=== PATIENT | male | born 1990 | race Caucasian/White ===

== ENCOUNTER 2022-12-22 13:42 | Outpatient (CLI) | payer MEDICAID, SELFPAY ==
--- NOTE | ~2022-12-22 | MR_ITS ---
EXAMINATION: MR brain/brain stem wo con DATE: 12/22/2022 14:52 INDICATION: Traumatic brain injury. TECHNIQUE: Magnetic resonance imaging (MRI) of the brain and brainstem was performed without intraven ous contrast. COMPARISON: None. FINDINGS: There is chronic encephalomalacia in right temporal parietal region and posterior right fro ntal lobe with old blood products. There is no intracranial hemorrhage, acute infarction, or abnormal mass lesion. The ventricles are normal in size. There is a right mastoid effusion. There is fluid in sphenoid sinus. The orbits are normal. IMPRESSION: 1. Chronic encephalomalacia in right temporal parietal region and posterior right frontal lobe. Reviewed, dictated and finalized at location E. IMPRESSION: 1. Chronic encephalomalacia in right temporal parietal region and posterior rig ht frontal lobe.
== END 2022-12-22 13:43 | disposition home or self-care (01) ==
LOC: ANHIMG 13:44
PROVIDERS: PCP Internal Medicine; Visit Provider Internal Medicine
DX: S06.8 Other specified intracranial injuries (principal); X58.XXXD Exposure to other specified factors, subsequent encounter; G93.89 Other specified disorders of brain
CPT/HCPCS: 70551

== ENCOUNTER 2024-01-24 14:42 | Emergency (ER) | payer BC, SELFPAY ==
[2024-01-24] VITALS (16 sets, daily range): BP systolic 85–129; BP diastolic 63–96; PULSE 71–103; RESP 10–25; TEMP 36.6; O2SAT 93–100
--- NOTE | ~2024-01-24 | XR_ITS ---
EXAMINATION: XR chest 1V DATE: 01/24/2024 17:01 INDICATION: Syncope. TECHNIQUE: A single frontal view of the chest was obtained. COMPARISON: None. FINDINGS: There is elevation of right hemidiaphragm. There is mild atelectasis at right lung base. No pleural effusion or pneumothorax. The heart size is normal. IMPRESSION: 1. Elevation of right hemidiaphragm with mild atelectasis at right lung base. Reviewed, dictated and finalized at location A.
--- NOTE | ~2024-01-24 | CT_ITS ---
EXAMINATION: CT brain wo con DATE: 01/24/2024 16:55 INDICATION: Head trauma and syncope TECHNIQUE: Computed tomography (CT) of the head was performed without intravenous contrast. Sagittal and coronal reconstructions were performed. Automated exposure control and iterative reconstruction t echnique were employed. The dose-length product was 681.00 mGy-cm. COMPARISON: Brain MR dated 12/22/2022 FINDINGS: No acute fracture. Chronic fracture in the left temporal and parietal regions which are subtly eviden t on the prior MRI. Small regions of encephalomalacia in the right temporal and right temporal pariet al regions underlying the region of fracture suggests this represents sequela of old trauma. No acute intracranial hemorrhage, acute infarction or abnormal extra axial fluid collection. Ventricles are n ormal and symmetric. No mass/mass effect. Mild mucosal thickening the right maxillary and sphenoid si nuses. The orbits and mastoid air cells are normal. IMPRESSION: 1. No acute fracture or acute intracranial process. 2. Old right temporoparietal calvarial fracture with small regions of immediately underlying encephal omalacia which favors sequela of old trauma rather than infarct. Reviewed, dictated and finalized at location A. IMPRESSION: 1. No acute fracture or acute intracranial process. 2. Old right temporoparietal calvarial fracture with small regions of immediate ly underlying encephalomalacia which favors sequela of old trauma rather than i nfarct.
--- NOTE | ~2024-01-24 | CT_ITS ---
EXAMINATION: CT facial & cervical spine wo DATE: 01/24/2024 16:58 INDICATION: Head injury. TECHNIQUE: Computed tomography (CT) of the maxillofacial region and cervical spine was performed with out intravenous contrast. Automated exposure control and iterative reconstruction technique were empl oyed. The dose-length product was 536.62 mGy-cm. COMPARISON: None FINDINGS: MAXILLOFACIAL CT: There is leftward deviation of the nasal septum. No fracture. There is mild mucosal thickening in the paranasal sinuses. There are carious lesions involving multiple molars. There are periapical lucenci es of tooth 2 and tooth [address] CERVICAL SPINE [address]: There is kyphosis of cervical spine. There is 8 degrees levocurvature of cervical spine. Vertebral polina dy heights are normal. There is mildly decreased disc height at C5-C6. The following disc levels are specifically discussed: C2-C3: There is no uncovertebral joint osteoarthritis. There is mild left facet joint osteoarthritis. There is no neural foraminal stenosis. There is no central canal stenosis. C3-C4: There is mild left uncovertebral joint osteoarthritis. There is no facet joint osteoarthritis. There is mild left neural foraminal stenosis. There is no central canal stenosis. C4-C5: There is no uncovertebral joint osteoarthritis. There is mild left facet joint osteoarthritis. There is no neural foraminal stenosis. There is no central canal stenosis. C5-C6: There is no uncovertebral joint osteoarthritis. There is mild bilateral facet joint osteoarthr itis. There is no neural foraminal stenosis. There is no central canal stenosis. C6-C7: There is no uncovertebral joint osteoarthritis. There is mild bilateral facet joint osteoarthr itis. There is no neural foraminal stenosis. There is no central canal stenosis. C7-T1: There is no uncovertebral joint osteoarthritis. There is mild bilateral facet joint osteoarthr itis. There is no neural foraminal stenosis. There is no central canal stenosis. IMPRESSION: 1. No fracture. 2. Dental disease. 3. Mild cervical spondylosis. Reviewed, dictated and finalized at location A.
--- NOTE | 2024-01-24 14:48 | ECG_ITS ---
Test Date: 2024-01-24 14:50:35 Measurements Intervals [place] Rate: 97 P: 41 MT: 151 QRS: 19 QRSD: 100 T: 66 QT: 355 QTc: 452 Interpretive Statements SINUS RHYTHM POSSIBLE LEFT ATRIAL ENLARGEMENT [-0.1mV P WAVE IN V1/V2] NONSPECIFIC T-WAVE ABNORMALITY No previous ECG available for comparison Electronically Signed On 01-24-2024 14:59:33 CDT by Alfredo Palacios M.D.
[2024-01-24 15:01] LABS: Basophils Absolute Auto 0.1 K/mm3 (0.0-0.1); Basophils Percent Auto 0.6 % (0.2-1.2); Eosinophils Absolute Auto 0.1 K/mm3 (0-0.3); Eosinophils Percent Auto 0.9 % (0-4.4); Hematocrit 47.4 % (42.0-52.0); Hemoglobin 16.4 g/dL (14.0-18.0); Immature Granulocyte Absolute 0.24 K/mm3 (0.00-0.031); Immature Granulocyte Percent A 2.3 % (0-0.5); Lymphocytes Absolute Auto 4.11 K/mm3 (0.9-3.2); Mean Corpuscular HGB Conc 34.6 g/dl (32-36); Mean Corpuscular Hemoglobin 31.1 pg (26-34); Mean Corpuscular Volume 89.8 fl (80-100); Mean Platelet Volume 10.4 fl (7.4-10.4); Monocytes Absolute Auto 0.6 K/mm3 (0.1-0.6); Neutrophils Absolute Auto 5.2 K/mm3 (1.3-6.7); Neutrophils Percent Auto 50.2 % (45.5-73.1); Platelet Count Result 247 k/mm3 (150-375); Red Blood Count 5.28 M/mm3 (4.6-6.20); Red Cell Distribution Width 11.9 % (11.5-14.5); White Blood Count 10.3 K/mm3 (4.5-10.0)
[2024-01-24 15:14] LABS: Partial Thromboplastin Time 27.7 Seconds (22.3-36.8)
[2024-01-24 15:20] LABS: Alanine Aminotransferase 53 U/L (6-50); Albumin Level 4.6 g/dL (3.5-5.1); Alkaline Phosphatase 100 U/L (38-126); Anion Gap 16 mmol/L (4-12); Aspartate Amino Transferase 39 U/L (17-59); Bilirubin,Total 0.8 mg/dL (0.2-1.3); Blood Urea Nitrogen 11 mg/dL (9-20); Calcium 9.3 mg/dL (8.4-10.2); Carbon Dioxide 18 mmol/L (22-30); Chloride 100 mmol/L (98-107); Estimated CRCL calculation 130 ml/min; Estimated Glomerular Filt Rate > 60; Glucose 120 mg/dL (65-110); Potassium 3.8 mmol/L (3.4-5.0); Sodium 134 mmol/L (137-145)
[2024-01-24] MEDS: SODIUM CHLORIDE 0.9% IV 1,000 ML 999 ML IV CONT (17:12)
--- NOTE | 2024-01-24 17:25 | ED.GENADULT ---
HPI - General Adult General Chief complaint: Altered Mental Status Stated complaint: ams Time Seen by Provider: 01/24/24 16:24 History of Present Illness HPI narrative: Patient 33-year-old gentleman presents emergency department with chief complaint of altered mental status and syncopal episode. Per the patient's family the patient has prior history of a traumatic brain injury and a subdural hematoma about a year ago while he was in [place] the patient is not on any anti elliptic medications the patient's father reports that he heard a thud and found the patient wedge between a nightstand dresser the patient did have some shaking of his extremities but no bowel or bladder dysfunction. The patient reports that there is bruising present to the scalp. Patient reports no other injury. The family reports that he normally has some difficulty with answering some questions reports that he is close to his baseline now. Related Data Allergies Allergy/AdvReac Type Severity Reaction Status Date / Time No Known Allergies Allergy Mild Verified 01/24/24 14:47 Review of Systems Review of Systems: A 10 system review of systems was completed on the patient and is negative except for what is stated in the HPI. Nursing and ancillary documentation was reviewed. Exam Narrative: GENERAL: Well-appearing, well-nourished, and in no acute distress. HEAD: Normocephalic, atraumatic. EYES: PERRLA and EOMI. ENT: Nares clear, no rhinorrhea or epistaxis. Mucous membranes moist. NECK: Supple. CHEST: Clear to auscultation. No respiratory distress. HEART: Regular rate and rhythm. No murmur heard. Normal peripheral pulses. ABDOMEN: Soft, nontender, nondistended, normal active bowel sounds. EXTREMITIES: Normal range of motion. No edema. SKIN: Warm, dry, no rash. NEURO: No focal deficits. Alert and oriented x3. PSYCH: Normal mood and affect. Course Vital Signs Vital signs: Vital Signs Temperature 36.6 C 01/24/24 14:42 Pulse Rate 103 H 01/24/24 14:42 Respiratory Rate 19 01/24/24 14:42 Blood Pressure 102/67 01/24/24 14:42 Pulse Oximetry 97 01/24/24 14:42 Oxygen Delivery Room Air 01/24/24 14:42 Temperature 36.6 C 01/24/24 14:42 Pulse Rate 86 01/24/24 17:31 Respiratory Rate 25 H 01/24/24 17:31 Blood Pressure 115/68 01/24/24 17:31 Pulse Oximetry 96 01/24/24 17:31 Oxygen Delivery Room Air 01/24/24 14:42 Medical Decision Making [facility] Narrative Medical decision making narrative: Differential diagnosis improved syncopal episode, seizure, electrolyte abnormality, Laboratory studies were obtained showed normal CBC CMP showed a CO2 18 anion gap 16 glucose 120 lactic acid was [address] head facial bones and C-spine showed no acute injury the prior injury was redemonstrated no acute or chronic subdural present there was encephalomalacia from the previous injury that was unchanged from previous MRI The case was discussed with neurology will be able to follow the patient up in the office the patient be loaded with Keppra and will be started on 750 of Keppra twice daily Vital Signs Vital Signs: Vital Signs Temperature 36.6 C 01/24/24 14:42 Pulse Rate 103 H 01/24/24 14:42 Respiratory Rate 19 01/24/24 14:42 Blood Pressure 102/67 01/24/24 14:42 Pulse Oximetry 97 01/24/24 14:42 Oxygen Delivery Room Air 01/24/24 14:42 Temperature 36.6 C 01/24/24 14:42 Pulse Rate 86 01/24/24 17:31 Respiratory Rate 25 H 01/24/24 17:31 Blood Pressure 115/68 01/24/24 17:31 Pulse Oximetry 96 01/24/24 17:31 Oxygen Delivery Room Air 01/24/24 14:42 Lab Data 01/24/24 14:56 01/24/24 14:56 Labs: Lab Results 01/24/24 01/24/24 01/24/24 Range/Units 14:56 17:12 18:23 WBC 10.3 H (4.5-10.0) K/mm3 RBC 5.28 (4.6-6.20) M/mm3 Hgb 16.4 (14.0-18.0) g/dL Hct 47.4 (42.0-52.0) % MCV 89.8 (80-100) fl MCH 31.1 (26
[2024-01-24 17:33] LABS: Lactic Acid Reflex 2.7 mmol/L (0.7-2.0)
[2024-01-24 17:34] LABS: Ethanol < 10 mg/dL (<10)
[2024-01-24 17:36] LABS: Magnesium 2.2 mg/dL (1.6-2.3)
[2024-01-24] MEDS: levETIRAcetam 1000MG/NACL100ML 1,000 MG/100 ML BAG 400 MG IVPB (17:56)
--- NOTE | 2024-01-24 18:14 | PC.NURSE ---
Walking O2 90% after walking around nursing station.
[2024-01-24 18:47] LABS: Amphetamine Screen Urine Negative (Negative); Barbiturate Screen Urine Negative (Negative); Benzodiazepines Screen Urine Negative (Negative); Cannabinoid Screen Urine Positive (Negative); Cocaine Screen Urine Negative (Negative); Methadone Screen Urine Negative (Negative); Opiate Screen Urine Negative (Negative); Phencyclidine Screen Urine Negative (Negative)
[2024-01-24 18:49] LABS: Add Urine Microscopic? YES; Appearance Urine Clear (Clear); Bacteria Urine None Seen /hpf; Bilirubin Urine Negative (Negative); Blood Urine Negative (Negative); Color Urine Yellow (Yellow); Glucose Urine UA Negative (Negative); Ketones Urine Trace mg/dL (Negative); Leukocyte Esterase Ur Negative LEU/UL (Negative); Need Manual Microscopic Reviewed; Nitrate Urine Negative (Negative); Non Pathogenic Casts 0-2; Protein Urine 1+ mg/dL (Negative); RBC Urine 0-2 /hpf (0-2); Specific Grav Ur 1.019 (1.001-1.035); Spermatozoa Urine Present; Squamous Epithelial Cell Urine None Seen /hpf (Few); Urobilinogen Urine 0.2 mg/dL (<2.0); WBC Urine 0-5 /hpf (0-3)
[2024-01-24 20:20] LABS: Reflex Lactic Acid Yes or No Add Lactic
== END 2024-01-24 19:02 | disposition home or self-care (01) ==
PROVIDERS: Emergency Medicine; Emergency Provider Emergency Medicine; PCP Internal Medicine
DX: R55 Syncope and collapse (principal); R56.9 Unspecified convulsions; Z87.820 Personal history of traumatic brain injury; R94.31 Abnormal electrocardiogram [ECG] [EKG]; M47.812 Spondylosis without myelopathy or radiculopathy, cervical region; K02.9 Dental caries, unspecified
CPT/HCPCS: 36415; 70450; 70486; 71045; 72125; 80053; 80307; 81001; 83605; 83735; 85025; 85610; 85730; 93005; 96361; 96365; 99284; J1953; J7030